=== PATIENT | female | born 1975 | race Caucasian/White ===

== ENCOUNTER → 2018-03-16 12:57 | Outpatient (CLI) | payer OTHER, SELFPAY ==
--- NOTE | 2018-03-16 | DI.MG.S_ITS ---
BILATERAL DIGITAL SCREENING MAMMOGRAM 3D/2D WITH CAD: 03/16/2018 CLINICAL: Baseline exam. Routine screening. No prior exams were available for comparison. The tissue of both breasts is extremely dense, which lowers the sensitivity of mammography. Current study was also evaluated with a Computer Aided Detection (CAD) system. There are 0.5 cm grouped heterogeneous calcifications in the left breast at 1 o'clock anterior depth 3.5 cm from the nipple. No other significant masses, calcifications, or other findings are seen in either breast. IMPRESSION: INCOMPLETE: NEEDS ADDITIONAL IMAGING EVALUATION The 0.5 cm grouped heterogeneous calcifications in the left breast are indeterminate. Mediolateral and spot magnification views are recommended. This exam was interpreted at Station ID: [id number]. NOTE: For mammograms, a report in lay terms will be sent to the patient. Approximately 15% of breast malignancies will not be visualized mammographically. In the management of a palpable breast mass, a negative mammogram must not discourage biopsy of a clinically suspicious lesion. Electronically Signed By: Oumar montana/markel:03/16/2018 13:41:52 letter sent: Additional Imaging Needed ACR BI-RADS Category 0: Incomplete 3340F
== END ==
PROVIDERS: Family Provider Family Medicine; PCP Family Medicine; Visit Provider Obstetrics & Gynecology
DX: Z12.31 Encounter for screening mammogram for malignant neoplasm of breast (principal)
CPT/HCPCS: 77063; 77067

== ENCOUNTER → 2018-03-30 08:58 | Outpatient (CLI) | payer OTHER, SELFPAY ==
--- NOTE | 2018-03-30 08:59 | DI.MG.S_ITS ---
UNILATERAL LEFT DIGITAL DIAGNOSTIC MAMMOGRAM 3D/2D WITH ADDITIONAL VIEWS: 03/30/2018 CLINICAL: Additional evaluation requested from prior study. Comparison is made [facility] The tissue of left breast is extremely dense, which lowers the sensitivity of mammography. There are a grouped fine calcifications in the left breast at 1 o'clock middle depth. No other significant masses or calcifications are seen in the breast. IMPRESSION: SUSPICIOUS OF MALIGNANCY The grouped fine calcifications in the left breast are at a low suspicion for malignancy. A stereotactic biopsy is recommended. The findings were discussed with the patient at the conclusion of the study by Dr. Farrell. This exam was interpreted at Station ID: [id number]. NOTE: For mammograms, a report in lay terms will be sent to the patient. Approximately 15% of breast malignancies will not be visualized mammographically. In the management of a palpable breast mass, a negative mammogram must not discourage biopsy of a clinically suspicious lesion. Electronically Signed By: Thony christianson/:03/30/2018 09:58:25 letter sent: Biopsy Required ACR BI-RADS Category 4a: Suspicious abnormality - low suspicion for malignancy 3344F
== END ==
PROVIDERS: Family Provider Family Medicine; PCP Family Medicine; Visit Provider Obstetrics & Gynecology
DX: R92.1 Mammographic calcification found on diagnostic imaging of breast (principal)
CPT/HCPCS: 77065; G0279

== ENCOUNTER → 2018-04-27 08:51 | Outpatient (CLI) | payer OTHER, SELFPAY ==
--- NOTE | 2018-04-27 08:52 | DI.MRI.S_ITS ---
BREAST MRI OF BOTH BREASTS: 04/27/2018 CLINICAL: Breast cancer. PROCEDURE: MR BREAST BI WO/W CON INDICATIONS: Left breast DCIS. Diagnostic mammography of 03/30/2018 identified grouped calcifications in the left breast at 1:00 position middle depth and subsequent stereotactic guided biopsy on 04/13/2018 was positive for ductal carcinoma in situ and an TECHNIQUE: The patient was placed prone in a dedicated breast imaging coil. Precontrast axial STIR and 3D FLASH without fat saturation sequences were obtained. Both before and after bolus injection of contrast, sequential 1-minute axial 3D FLASH with fat saturation sequences for 3 time points, with subtraction images and maximum intensity projections (MIP's) generated. Delayed sagittal FLASH images with fat saturation were also obtained. 20 ccs of ProHance intravenous contrast was utilized for this exam. Computer-aided detection, including computer algorithm analysis of MRI image data for lesion detection and characterization, pharmacokinetic analysis, with further physician review for interpretation, was performed. COMPARISON: Bilateral screening mammogram 03/16/2018. Diagnostic mammogram 03/30/2018. Stereotactic biopsy and specimen images 04/13/2018. FINDINGS: Image quality: Excellent. There is extremely dense fibroglandular tissue bilaterally. There is marked background parenchymal enhancement. Left breast: There is susceptibility artifact in the upper outer left breast at middle depth consistent with a biopsy clip at the site of known biopsy proven malignancy (axial image 86 of series 6). There is diffuse signal hyperintensity on axial STIR imaging in the upper outer quadrant of the left breast consistent with post biopsy edema. There is corresponding non-mass enhancement of the upper outer left breast extending from anterior to middle depth at least 2.0 cm transverse by 4.7 cm anteroposterior by 2.4 cm craniocaudal. This non-mass enhancement demonstrates persistent contrast enhancement kinetics. There is no convincing skin, nipple, or pectoralis muscle involvement. No other masses or sites of non-mass enhancement are identified within the left breast. Right breast: There is an irregular indistinct area of non-mass enhancement demonstrating persistent contrast enhancement kinetics in the inferior right breast at 6:00 position at posterior depth measuring 1.2 cm anteroposterior by 1.0 cm transverse by 0.7 cm craniocaudal (axial image 38 of series 6). This area has the appearance of fibroglandular tissue on comparison mammography. There is an irregular indistinct area of non-mass enhancement demonstrating persistent contrast enhancement kinetics involving the upper outer quadrant right breast from middle to posterior depth measuring approximately 3.9 cm anteroposterior by 2.2 cm transverse by 4.3 cm craniocaudal (axial image 79 of series 6). This area has the appearance of fibroglandular tissue on comparison mammography. Miscellaneous: No axillary or internal mammary lymphadenopathy IMPRESSION: KNOWN BIOPSY PROVEN MALIGNANCY 1. Left breast: Suboptimal exam given marked background parenchymal enhancement and post-biopsy edematous changes of the upper outer left breast. Within this context, there is a 4.7 x 2.4 x 2.0 cm area of non-mass enhancement in the upper outer left breast surrounding the site of biopsy-proven carcinoma that may represent the extent of malignancy versus post biopsy changes. No other suspicious masses or non-mass enhancement is identified in the left breast. 2. Right breast: Areas of non-mass enhancement as described above involving the entirety of the upper outer quadrant of the right breast and a 1.2 cm area in the inferior right breast at 6:00 position posterior depth likely represent areas of prominent background parenchymal enhancement, but given that the degree of enhancement and enhancement kinetics are similar to the site of malignancy in the left breast, a targeted ultrasound of these regions is recommended for further evaluation/to exclude underlying malignancy. 3. Lymph nodes: No axillary or internal mammary lymphadenopathy bilaterally. BIRADS: 6. Known biopsy-proven malignancy. Recommend surgical excision when clinically feasible. Also recommend targeted ultrasound of the right breast as described above. COMMENT: The imaging literature indicates that a negative contrast breast MRI examination has a high sensitivity and a moderate specificity for detecting and excluding invasive carcinomas to a detection threshold of 3-5 mm; nonetheless, appropriate clinical and mammographic follow-up are recommended. MRI is not sensitive for detecting DCIS (ductal carcinoma in situ) and may not detect large invasive neoplasms that show only minimal enhancement such as mucinous carcinoma. If there are suspicious calcifications or clinically worrisome palpable masses, then biopsy should still be considered. Invasive neoplasms can be hidden by co-existent and benign enhancement caused by mastitis, hormone therapy effects, radiation therapy, , and recent biopsy or surgery. False positive examinations can occur in a number of circumstances, including breasts that have recently been subject to invasive procedures and those that contain atypical ductal hyperplasia, hormonally stimulated glandular tissue, fat necrosis, or radial scars. This exam was interpreted at Station ID: [id number]. Electronically Signed By: Reese velasco/:04/28/2018 10:01:21 ACR BI-RADS Category 6: Known biopsy proven malignancy 3346F
== END ==
PROVIDERS: Family Provider Family Medicine; PCP Family Medicine; Referring Provider Obstetrics & Gynecology; Visit Provider Surgery
DX: D05.12 Intraductal carcinoma in situ of left breast (principal); N63.11 Unspecified lump in the right breast, upper outer quadrant
CPT/HCPCS: 77049; A9579

== ENCOUNTER → 2018-04-30 12:53 | Outpatient (CLI) | payer OTHER, SELFPAY ==
--- NOTE | 2018-04-30 | DI.US.S_ITS ---
LIMITED ULTRASOUND OF RIGHT BREAST: 04/30/2018 CLINICAL: Additional evaluation requested from prior study. Comparison is made to exams dated: 04/27/2018 breast MRI - [facility], 04/13/2018 specimen, 04/13/2018 stereotactic biopsy - [facility], 03/30/2018 mammogram, and 03/16/2018 mammogram - [facility]. Review of recent MRI was performed. Second look targeted ultrasound of the right breast was performed. There is a benign 1 cm x 0.4 cm x 0.9 cm oval cyst in the right breast at 9 o'clock posterior depth. This oval cyst is anechoic. There also is dense benign fibroglandular tissue in the right breast throughout the upper outer quadrant. Additionally, there are no suspicious findings in the right breast at 6 o'clock posterior depth. IMPRESSION: BENIGN There is no convincing sonographic evidence of malignancy. The 1 cm x 0.4 cm x 0.9 cm oval cyst in the right breast at 9 o'clock posterior depth consistent with a simple cyst and is benign. The remainder of the scanned right breast demonstrates dense, normal fibroglandular tissue. Clinical followup recommended. Findings conveyed to the patient by the technologist. This exam was interpreted at Station ID: [id number]. Electronically Signed By: Socorro wang/:04/30/2018 17:40:06 letter sent: Clinical Evaluation Ultrasound BI-RADS: 2 Benign
== END ==
PROVIDERS: Family Provider Family Medicine; PCP Family Medicine; Referring Provider Obstetrics & Gynecology; Visit Provider Surgery
DX: R92.8 Other abnormal and inconclusive findings on diagnostic imaging of breast (principal); N60.01 Solitary cyst of right breast
CPT/HCPCS: 76642

== ENCOUNTER → 2018-07-17 12:29 | Outpatient (CLI) | payer OTHER, SELFPAY ==
[2018-07-17 14:27] LABS: Free T3, Triiodothyronine Free 3.81 pg/mL (2.77-5.27); T4 Total Thyroxine 6.54 ug/dL (5.5-11.0)
[2018-07-17 14:40] LABS: Thyroid Stimulating Hormone 1.51 uIU/mL (0.47-4.68)
[2018-07-17 17:36] LABS: Vitamin D 25 Hydroxy (D3) 46.4 ng/mL (30.0-100.0)
[2018-07-20 14:14] LABS: Sex Hormone Binding Globulin 65 nmol/L (17-124)
[2018-07-21 13:48] LABS: Dehydroepiandrosterone Sulfate 141 mcg/dL (19-231)
[2018-07-22 06:41] LABS: 1 25 Dihydroxy Vitamin D 46 pg/mL (18-72)
[2018-07-23 13:46] LABS: Testosterone Total 14 ng/dL (2-45)
== END ==
PROVIDERS: Family Provider Family Medicine; PCP Family Medicine; Visit Provider Obstetrics & Gynecology
DX: N95.1 Menopausal and female climacteric states (principal)
CPT/HCPCS: 36415; 82306; 82627; 82652; 82672; 84144; 84270; 84402; 84403; 84436; 84443; 84481

== ENCOUNTER → 2019-01-04 17:20 | Outpatient (CLI) | payer OTHER, SELFPAY | PROVIDERS: PCP Family Medicine | DX: Z23 Encounter for immunization (principal) | CPT/HCPCS: 90471; 90682 ==

== ENCOUNTER → 2019-12-21 | Outpatient (CLI) | payer OTHER, SELFPAY | PROVIDERS: PCP Family Medicine; Referring Provider Internal Medicine; Visit Provider Internal Medicine | DX: Z23 Encounter for immunization (principal) | CPT/HCPCS: 90471; 90682 ==

== ENCOUNTER → 2021-01-04 14:55 | Outpatient (CLI) | payer OTHER, SELFPAY | PROVIDERS: PCP Family Medicine; Referring Provider Internal Medicine; Visit Provider Internal Medicine | DX: Z23 Encounter for immunization (principal) | CPT/HCPCS: 90471; 90682 ==

== ENCOUNTER → 2021-12-03 10:09 | Outpatient (CLI) | payer OTHER, SELFPAY ==
--- NOTE | 2021-12-03 | DI.US.S_ITS ---
PROCEDURE: US THYROID INDICATIONS: nontoxic single thryoid nodule TECHNIQUE: Real-time scanning was performed of the thyroid gland, with image documentation. COMPARISON: None. FINDINGS: Right: Thyroid lobe measures 6.0 x 1.6 x 1.5 cm, and is homogeneous in echotexture. Left: Thyroid lobe measures 5.4 x 1.5 x 1.5 cm, and is homogenous in echotexture. Isthmus: 0.3 cm thick. Nodule number: 1 Location: Right inferior Size: 1.2 x 0.7 x 1.2 cm Composition: Predominantly solid Echogenicity: Isoechoic Shape: Wider than tall Margins: Smooth Echogenic foci: None Total points: 3 ACR TI-RADS category: Mildly suspicious Nodule number: 2 Location: Right mid Size: 0.8 x 0.6 x 0.6 cm Composition: Solid Echogenicity: Isoechoic Shape: Wider than tall Margins: Smooth Echogenic foci: None Total points: 3 ACR TI-RADS category: Mildly suspicious IMPRESSION: Mildly suspicious thyroid nodules do not require dedicated imaging follow-up based on guidelines provided below. ACR TI-RADS definitions and recommendations: TI-RADS 1 (benign): 0 points. FNA not needed. TI-RADS 2 (not suspicious): 2 points. FNA not needed. TI-RADS 3 (mildly suspicious): 3 points. * FNA if 2.5 cm or larger, follow up if 1.5 cm or larger (at 1, 3, and 5 years). TI-RADS 4 (moderately suspicious): 4-6 points. * FNA if 1.5 cm or larger, follow up if 1 cm or larger (at 1, 2, 3, and 5 years). TI-RADS 5 (highly suspicious): 7 points or more. * FNA if 1 cm or larger, follow up if 0.5 cm or larger (every year for 5 years). Dictated by: Parminder Marques M.D. on 12/03/2021 at 14:52 Approved by: Parminder Marques M.D. on 12/03/2021 at 14:57
--- NOTE | 2021-12-03 | DI.US.S_ITS ---
PROCEDURE: US ABDOMEN COMPLETE INDICATIONS: Abdominal pain TECHNIQUE: Real-time scanning was performed of the abdominal and retroperitoneal organs, with image documentation. COMPARISON: None. FINDINGS: Liver: Simple cyst measuring 1.5 centimeters in the posterior right hepatic lobe. Liver otherwise normal. Gallbladder: Normally distended. No gallbladder wall thickening or pericholecystic fluid. No gallstone or sludge. Negative sonographic Moreno's sign reported. Biliary ducts: Normal diameter. Pancreas: Visualized portions of the pancreas are sonographically normal. Spleen: Spleen is normal in size and homogeneous in echotexture. Kidneys: Normal size and appearance. No shadowing calculus or hydronephrosis. Aorta: Visualized aorta is normal in caliber at less than 3 cm. Iliacs: Proximal common iliac arteries are normal in caliber at less than 2.5 cm. IVC: Intrahepatic inferior vena cava is patent. Miscellaneous: No free abdominal fluid. IMPRESSION: Normal study. Dictated by: Xavier Warren M.D. on 12/03/2021 at 11:24 Approved by: Xavier Warren M.D. on 12/03/2021 at 11:25
== END ==
PROVIDERS: PCP Family Medicine; Referring Provider Family Medicine; Visit Provider Family Medicine
DX: E04.2 Nontoxic multinodular goiter (principal); R10.11 Right upper quadrant pain
CPT/HCPCS: 76536; 76700

== ENCOUNTER → 2021-12-28 14:24 | Outpatient (CLI) | payer OTHER, SELFPAY | PROVIDERS: PCP Family Medicine; Referring Provider Internal Medicine; Visit Provider Internal Medicine | DX: Z23 Encounter for immunization (principal) | CPT/HCPCS: 90471; 90682 ==

== ENCOUNTER → 2023-02-22 09:54 | Outpatient (CLI) | payer OTHER, SELFPAY ==
[2023-02-22 10:47] LABS: HEMOLYSIS < 15 (0-50); Potassium 4.2 mmol/L (3.4-5.1)
[2023-02-22 10:48] LABS: Alanine Aminotransferase 21 IU/L (<35); Albumin 4.1 g/dL (3.5-5.0); Albumin Globulin Ratio 1.3 (1.0-2.8); Alkaline Phosphatase 67 U/L (38-126); Aspartate Aminotransferase 24 IU/L (14-36); BUN Creatinine Ratio 23.2 (6-22); Bilirubin Total 0.7 mg/dL (0.2-1.3); Blood Urea Nitrogen 19 mg/dL (7-17); Calcium 9.3 mg/dL (8.4-10.2); Carbon Dioxide 27 mmol/L (22-32); Chloride 101 mmol/L (98-107); Cholesterol 177 mg/dL (140-199); Estimated Glomerular Filt Rate > 60 mL/min (>60); Globulin 3.2 g/dL (1.7-4.1); Glucose 87 mg/dL (70-100); HDL Cholesterol 58 mg/dL (40-60); LDL Cholesterol Calculated 108 mg/dL (<100); Sodium 136 mmol/L (137-145); Total Protein 7.3 g/dL (6.3-8.2); Triglycerides 53 mg/dL (35-150)
[2023-02-23 11:09] LABS: C Peptide 1.4 ng/mL (1.1-4.4); Insulin Level Total 4.2 uIU/mL (2.6-24.9)
[2023-02-24 08:16] LABS: Apolipoprotein B 93 mg/dL (<90)
[2023-02-25 12:39] LABS: Add Manual Diff / Slide Review NO; Basophils Absolute Auto 100 /uL (0-100); Basophils Percent Auto 0.6 % (0-2); Eosinophils Absolute Auto 0 /uL (0-450); Eosinophils Percent Auto 0.6 % (2-4); Hematocrit 42.3 % (36-46); Hemoglobin 14.3 g/dL (12.0-16.0); Lymphocytes Absolute Auto 2200 /uL (1100-4500); Lymphocytes Percent Auto 26.4 % (25-40); Mean Corpuscular HGB Conc 33.8 % (30-36); Mean Corpuscular Hemoglobin 31.5 PG (26-34); Mean Corpuscular Volume 93.3 fL (80-100); Monocytes Absolute Auto 400 /uL (0-900); Monocytes Percent Auto 5.3 % (3-14); Neutrophils Absolute Auto 5500 /uL (1500-7000); Neutrophils Percent Auto 67.1 % (50-75); Platelet Count 365 X10^3/uL (150-400); Red Blood Cell Count 4.53 X10^6/uL (4.0-5.2); Red Cell Distribution Width 13.4 % (11.6-14.8); White Blood Cell Count 8.2 X10^3/uL (4.5-11.0)
[2023-02-25 13:26] LABS: Thyroid Stimulating Hormone 1.22 uIU/mL (0.47-4.68)
[2023-02-25 19:11] LABS: Follicle Stimulating Hormone 4.69 mIU/mL; Luteinizing Hormone 4.72 mIU/mL; Progesterone, Total 1.87 ng/mL
[2023-02-25 19:26] LABS: Estradiol, Total 228.1 pg/mL
[2023-02-27 17:11] LABS: Anti Thyroglobulin Antibody <1.0 IU/mL (0.0-0.9); Thyroid Peroxidase Antibodies <9 IU/mL (0-34)
[2023-02-28 21:37] LABS: Thyroid Stimulating Immunoglob < 0.10 IU/L (0.00-0.55)
== END ==
LOC: LAB 09:59
PROVIDERS: PCP Family Medicine; Referring Provider Naturopath; Visit Provider Naturopath
DX: Z00.00 Encounter for general adult medical examination without abnormal findings (principal); N95.9 Unspecified menopausal and perimenopausal disorder
CPT/HCPCS: 36415; 80053; 80061; 82172; 82670; 83001; 83002; 83525; 84144; 84439; 84443; 84445; 84481; 84681; 85025; 86376; 86800

== ENCOUNTER → 2023-06-14 08:26 | Outpatient (CLI) | payer OTHER, SELFPAY ==
[2023-06-14 09:14] LABS: Hematocrit 41.3 % (36-46); Hemoglobin 13.9 g/dL (12.0-16.0); Mean Corpuscular HGB Conc 33.7 % (30-36); Mean Corpuscular Hemoglobin 31.3 PG (26-34); Mean Corpuscular Volume 92.8 fL (80-100); Platelet Count 256 X10^3/uL (150-400); Red Blood Cell Count 4.45 X10^6/uL (4.0-5.2); Red Cell Distribution Width 13.9 % (11.6-14.8); White Blood Cell Count 4.3 X10^3/uL (4.5-11.0)
[2023-06-14 10:02] LABS: Testosterone 125 ng/dL (5.71-77.0)
== END ==
PROVIDERS: PCP Family Medicine; Referring Provider Naturopath; Visit Provider Naturopath
DX: N95.9 Unspecified menopausal and perimenopausal disorder (principal)
CPT/HCPCS: 36415; 84403; 85027

== ENCOUNTER → 2024-02-09 08:18 | Outpatient (CLI) | payer OTHER, SELFPAY ==
[2024-02-09 08:57] LABS: Add Manual Diff / Slide Review NO; Basophils Absolute Auto 100 /uL (0-100); Basophils Percent Auto 1.1 % (0-2); Eosinophils Absolute Auto 100 /uL (0-450); Eosinophils Percent Auto 2.5 % (2-4); Hematocrit 42.6 % (36-46); Hemoglobin 14.5 g/dL (12.0-16.0); Lymphocytes Absolute Auto 2000 /uL (1100-4500); Lymphocytes Percent Auto 42.4 % (25-40); Mean Corpuscular HGB Conc 34.1 % (30-36); Mean Corpuscular Hemoglobin 32.3 PG (26-34); Mean Corpuscular Volume 94.7 fL (80-100); Monocytes Absolute Auto 400 /uL (0-900); Monocytes Percent Auto 8.5 % (3-14); Neutrophils Absolute Auto 2200 /uL (1500-7000); Neutrophils Percent Auto 45.5 % (50-75); Platelet Count 225 X10^3/uL (150-400); Red Cell Distribution Width 13.5 % (11.6-14.8); White Blood Cell Count 4.8 X10^3/uL (4.5-11.0)
[2024-02-09 09:21] LABS: Alanine Aminotransferase 21 IU/L (<35); Albumin 3.9 g/dL (3.5-5.0); Albumin Globulin Ratio 1.4 (1.0-2.8); Alkaline Phosphatase 71 U/L (38-126); Aspartate Aminotransferase 28 IU/L (14-36); BUN Creatinine Ratio 20.2 (6-22); Bilirubin Total 0.6 mg/dL (0.2-1.3); Blood Urea Nitrogen 18 mg/dL (7-17); Calcium 9.3 mg/dL (8.4-10.2); Carbon Dioxide 28 mmol/L (22-32); Chloride 104 mmol/L (98-107); Cholesterol 183 mg/dL (140-199); Estimated Glomerular Filt Rate > 60 mL/min (>60); Globulin 2.7 g/dL (1.7-4.1); Glucose 96 mg/dL (70-100); HDL Cholesterol 68 mg/dL (40-60); HEMOLYSIS < 15 (0-50); LDL Cholesterol Calculated 101 mg/dL (<100); Potassium 4.4 mmol/L (3.4-5.1); Sodium 135 mmol/L (137-145); Total Protein 6.6 g/dL (6.3-8.2); Triglycerides 70 mg/dL (35-150)
[2024-02-09 09:38] LABS: Follicle Stimulating Hormone 38.3 mIU/mL; Luteinizing Hormone 99.5 mIU/mL; Progesterone, Total 1.54 ng/mL
[2024-02-09 09:53] LABS: Estradiol, Total 137.1 pg/mL
[2024-02-10 08:12] LABS: C Peptide 1.6 ng/mL (1.1-4.4)
[2024-02-10 11:16] LABS: Insulin Level Total 6.2 uIU/mL (2.6-24.9)
== END ==
PROVIDERS: PCP Family Medicine; Referring Provider Naturopath; Visit Provider Naturopath
DX: Z00.00 Encounter for general adult medical examination without abnormal findings (principal); N95.9 Unspecified menopausal and perimenopausal disorder
CPT/HCPCS: 36415; 80053; 80061; 82670; 83001; 83002; 83525; 84144; 84402; 84403; 84681; 85025